=== PATIENT | male | born 1965 ===

== ENCOUNTER 2021-06-02 09:25 | Outpatient (CLI) | payer OTHER ==
--- NOTE | 2021-06-02 11:00 | Magnetic Resonance Report ---
MRI BRAIN WITHOUT CONTRAST INDICATION / CLINICAL INFORMATION: TINNITUS BILAT.. Long history of tinnitus TECHNIQUE: Multisequence, multiplanar images were obtained. Thin collimation images through the internal control manager y canals. COMPARISON: None available. FINDINGS: CEREBRAL and CEREBELLAR HEMISPHERES: No evidence of mass or mass effect. No midline shift. No acute hemorrhage. No diffusion restriction to suggest acute infarct. No extra-axial fluid collection. T hin collimation images through the internal auditory canals demonstrate normal appearance of the bila teral cranial 7/8 nerve complexes. No cerebellopontine angle mass or acoustic neuroma is identified. Middle ear contents appear normal and symmetric bilaterally. The mastoid air cells are well aerated. VENTRICLES: Normal in size and configuration for age. VISUALIZED ORBITS: No significant abnormality. VISUALIZED PARANASAL SINUSES: No significant abnormality. ADDITIONAL FINDINGS: None. IMPRESSION: Unremarkable MR brain without contrast. Signer Name: Aj Mendez Jr, MD Signed: 06/02/2021 10:56 AM Workstation Name: [id number]
== END 2021-06-02 09:26 | disposition home or self-care (01) ==
LOC: MRI 09:25
PROVIDERS: ATTEND Internal Medicine
DX: H93.13 Tinnitus, bilateral (principal)
CPT/HCPCS: 70551